=== PATIENT | female | born 1975 ===

== ENCOUNTER 2020-06-10 17:36 | Emergency (ER) | payer OTHER ==
[~2020-06-10] VITALS: Ht 160 cm; Wt 96.8 kg
[2020-06-10 17:40] VITALS: BP 158/84; Ht 160 cm; Wt 96.8 kg
[2020-06-10 18:06] LABS: BASOPHILS 0.4 % (0-2); EOSINOPHILS 3.1 % (0-7); HEMATOCRIT 40.8 % (36.0-48.0); HEMOGLOBIN 14.1 g/dL (12-16); IMMATURE GRANULOCYTES 0.3 % (0-5); LYMPHOCYTE ABS# 3.15 10x3/uL (1.18-3.74); LYMPHOCYTES 28.6 % (15-50); MCH 30.5 pg (26.0-34.0); MCHC 34.6 g/dL (31.0-37.0); MCV 88.1 fL (80.0-100.0); MEAN PLATELET VOLUME 11.9 fL (7.4-10.4); NEUTROPHIL ABS# 6.79 10x3/uL (1.56-6.13); NEUTROPHILS 61.6 % (40-80); PLATELET COUNT 267 10x3/uL (130-400); RBC 4.63 10x6/uL (4.00-5.40); RDW 12.2 % (11.5-14.5)
[2020-06-10 18:14] LABS: CALC OSMOLALITY 279 mosm/kg (275-300); CARBON DIOXIDE 26.3 mmol/L (21.0-32.0); CHLORIDE - SERUM 103 mmol/L (98-107); CREATININE - SERUM 0.9 mg/dL (0.6-1.3); GLUCOSE 102 mg/dL (74-106); POTASSIUM - SERUM 3.9 mmol/L (3.5-5.1); SODIUM 139 mmol/L (136-145); UREA NITROGEN 18 mg/dL (7-18); eGFR NON AFRICAN AMERICAN 72 mL/min (90-120)
[2020-06-10 18:29] LABS: ALBUMIN 3.9 g/dL (3.4-5.0); ALKALINE PHOSPHATASE 77 U/L (30-120); ALT (SGPT) 18 U/L (10-68); BILIRUBIN - TOTAL 0.16 mg/dL (0.2-1.3); CKMB 0.9 U/L (0.0-3.6); CREATINE KINASE 88 UL (21-215); PROTEIN - SERUM 7.9 g/dL (6.4-8.2)
[2020-06-10 18:32] LABS: TROPONIN-I < 0.017 ng/mL (0.000-0.060)
[2020-06-10] MEDS ORDERED: NAPROSYN500 MG PO (21:06)
[2020-06-10] MEDS ORDERED: ULTRAM50 MG PO (21:06)
== END 2020-06-10 21:23 | disposition home or self-care (01) ==
LOC: D.ER 17:36
PROVIDERS: Internal Medicine
DX: R07.89 Other chest pain (principal); M94.0 Chondrocostal junction syndrome [Tietze]